=== PATIENT | male | born 1965 | race Caucasian/White ===

== ENCOUNTER → 2018-12-23 14:37 | Outpatient (CLI) | payer BC, SELFPAY | PROVIDERS: PCP Emergency Medicine; Visit Provider Emergency Medicine | DX: S81.802A Unspecified open wound, left lower leg, initial encounter (principal) | CPT/HCPCS: 87070; 87077; 87186; 87205 ==

== ENCOUNTER 2019-02-24 13:00 | Outpatient (RCR) | payer BC, SELFPAY ==
--- NOTE | 2018-12-23 14:47 | HMH.PTOPWND ---
Rehab Outpt Wound Evaluation Rehab OP Wound Evaluation Start: 12/23/18 13:22 Freq: Status: Active Protocol: Document 12/23/18 14:35 MERRY (Rec: 12/23/18 14:47 PHORNE [id number]) Electronically Signed By Nicholas Sneed, PT 12/23/18 14:35 Subjective/History History History Pt is 53 yowm who presents with c/o B LE swelling, pain, and open sores x ~ 2-3 yrs off and on, but worse x 1-2 mos. He reports he had a similar episode last year that took several mos to heal with treatment. He reports constant pain in B lower legs at 10/10 . He reports difficulty ambulating due to severe hip OA on the right side. He also has hx of HTN, epilepsy, and chronic LBP. His right lower leg presents with gauze wrap in place saturated with bright green drainage which shows a likely hernandez of pseudomonas infection. Subjective Subjective He continues to report 10/10 pain throughout B lower legs. Multiple open sores throughout the right lower leg. Wound Eval Wound Right Leg Wound Type Stasis Ulcer Is This a Chronic Wound Yes Wound Bed Appearance Dusky Red,[place],Peeling Skin, Edematous Wound Margins Description Indistinct Surrounding Tissue Appearance [place],Macerated Edema Appearance Weeping,Open Sores Drainage Description Green Drainage Amount Large Wound Topical Solution/Irrigant Saline Irrigant Primary Dressing Unna Boot Wound Secondary Dressing Type Gauze Roll/Wrap,Adhering Gauze Roll Wound Debridement Method Gauze Wound Debridement Amount of Tissue Moderate Removed Dressing Change Patient Tolerance Tolerated Well Wound Problems/Impairments Impairments Problems/Impairmments Palpation Tenderness,Impaired Strength,Impaired Endurance, Impaired Gait Pattern,Impaired Walking,Impaired Standing, Increased Edema,Lymphedema Present,Wound Care Needs, Subjective C/O Pain,Impaired
--- NOTE | 2019-01-23 14:42 | HMH.RHREAS ---
Rehab Reassessment Rehab OP Re-assessment Start: 01/23/19 14:37 Freq: Status: Active Protocol: Document 01/23/19 14:37 MERRY (Rec: 01/23/19 14:42 MERRY [id number]) Electronically Signed By Nicholas Sneed, PT 01/23/19 14:37 Rehab Re-assessment Subjective Subjective Pt reports itching continues on B LE, right > left, but otherwise feeling better. Objective Objective Notes Left LE wounds completely healed. Right LE 2 small wounds remain approximate length and width 1.5 cm ea. B LE edema decreased, but 1+ pitting edema remains. Assessment Progress Assessment Progressing as Expected Assessment Notes Right LE continues to have open sore, pitting edema and continued palpation tenderness . Patient goals met ST,2,3,4,5 Goals Not Met LT,2,3,4,5,6,7 Revised Goals none Plan Plan Continue per initial POC. Frequency of Therapy 2 x/wk Duration of therapy 8 wks Time and Billing Re-Eval Time 15 Re-Eval Billing Units 1 PHYSICIAN CERTIFICATION: I certify the specified therapy services for Ovidio Tracey are required, authorized, and reviewed every 30 days.
== END 2019-02-24 13:05 | disposition home or self-care (01) ==
LOC: PT 13:00
PROVIDERS: Visit Provider Emergency Medicine
DX: I89.0 Lymphedema, not elsewhere classified (principal)
CPT/HCPCS: 29580; 97140; 97163; 97164; 97597; 97760

== ENCOUNTER → 2019-06-05 09:04 | Outpatient (CLI) | payer BC, MEDICAID, SELFPAY ==
--- NOTE | 2019-06-05 09:52 | XR_ITS ---
PROCEDURE: XR HIP RT 2-3V W/PELVIS CLINICAL INDICATION: Hip pain COMPARISON: No exams were available for comparison FINDINGS: Study is limited technically due to patient's body habitus. There are severe osteoarthritic changes of the right hip with osteosclerosis loss of joint space and osteophyte formation. There are dysplastic changes the femoral head with mild lateral subluxation of the femoral head but no nehemias dislocation. IMPRESSION: Severe osteoarthritis of the right hip with dysplastic changes of the femoral head Dictated by: Kamlesh Riggs MD 06/05/2019 11:44 Electronically signed by Kamlesh Riggs MD in [place] 06/05/2019 11:44
== END ==
PROVIDERS: PCP Emergency Medicine; Visit Provider Orthopaedic Surgery
DX: M25.551 Pain in right hip (principal)
CPT/HCPCS: 73502

== ENCOUNTER → 2020-02-23 15:22 | Outpatient (CLI) | payer MEDICARE, BC, SELFPAY | PROVIDERS: Visit Provider Emergency Medicine | DX: L03.115 Cellulitis of right lower limb (principal); I89.0 Lymphedema, not elsewhere classified | CPT/HCPCS: 87070; 87077; 87186; 87205 ==

== ENCOUNTER 2020-04-07 15:00 | Outpatient (RCR) | payer MEDICARE, BC, SELFPAY ==
--- NOTE | 2020-02-23 16:15 | HMH.PTOPWND ---
Rehab Outpt Wound Evaluation Rehab OP Wound Evaluation Start: 02/23/20 16:07 Freq: Status: Active Protocol: Document 02/23/20 16:07 MERRY (Rec: 02/23/20 16:12 PHOJOHN [id number]) Electronically Signed By Nicholas Sneed, PT 02/23/20 16:07 Subjective/History History History Pt is 54 yowm who presents with B LE increased edema x 1- 2 mos, R > L. He also presents with obvious R LE cellulitis with multiple open wounds noted on the lateral and posterior R calf. Large purulent, bright green drainage noted. Pt has difficulty ambulating due to hip OA and hx of morbid obesity. Subjective Subjective Bright green drainage is indicitive of likely pseudomonas infection. Pt c/o pain in the R LE 8/10 at this time. Lymphedema Eval Classification of Lymphedema Secondary Lymphedema Yes Stemmer's sign Stemmer's Sign no Stage of Lymphedema Lymphedema stages Stage II (Pitting edema, increased fibrosis w/ decreased pitting) Skin Changes Dry Skin Yes [place]aut, Shiny Skin Yes Redness Yes Blisters Yes Wounds Yes Discoloration of Skin Yes Other Changes Yes Pain Scale Pain Scale (0-10) 8 Affected Extremities Areas Affected by Lymphedema/Edema Right Lower Extremity,Left Lower Extremity Manual Lymphatic Drainage Treatment Area MLD Treatment Area Right Lower Extremity,Left Lower Extremity Wound Problems/Impairments Impairments Problems/Impairmments Palpation Tenderness,Impaired Endurance,Impaired Gait Pattern,Impaired Walking, Increased Edema,Lymphedema Present,Wound Care Needs, Subjective C/O Pain,Impaired Self Care/Self Management Prognosis Rehab Potential Good Clinical Impression Consistent with Diagnosis Yes Short Term Goals Number of Weeks 4 Decreased Palpation Tenderness Yes: to min Decrease Edema Yes Decrease Wound Area Yes: by 25% Patient to Under
--- NOTE | 2020-03-24 14:14 | HMH.RHREAS ---
Rehab Reassessment Rehab OP Re-assessment Start: 03/24/20 14:06 Freq: Status: Active Protocol: Document 03/24/20 14:10 MERRY (Rec: 03/24/20 14:13 MERRY [id number]) Electronically Signed By Nicholas Sneed, PT 03/24/20 14:10 Rehab Re-assessment Subjective Subjective Pt reports less pain overall, continued itchy dry skin. Objective Objective Notes R Lower leg with 1+ pitting edema and mild fibrotic tissue quality. Wounds on R LE now fully epithelialized. Assessment Progress Assessment Progressing as Expected Assessment Notes No further wounds noted, improving edema and pain, mild excoriation of R lower leg. Patient goals met ST,2,3,4,5 Goals Not Met LT,2,3,4,5,6,7,8 Revised Goals none Plan Plan Continue per initial POC. Frequency of Therapy 2 x/wk Duration of therapy 8 wks Time and Billing Re-Eval Time 15 Re-Eval Billing Units 1 PHYSICIAN CERTIFICATION: I certify the specified therapy services for Ovidio Tracey are required, authorized, and reviewed every 30 days.
== END 2020-04-07 15:05 | disposition home or self-care (01) ==
LOC: PT 15:00
PROVIDERS: PCP Emergency Medicine; Visit Provider Emergency Medicine
DX: R60.0 Localized edema (principal); I89.0 Lymphedema, not elsewhere classified
CPT/HCPCS: 29580; 97140; 97162; 97164; 97597; 97760

== ENCOUNTER → 2021-08-30 08:34 | Outpatient (CLI) | payer MEDICARE, BC, SELFPAY ==
--- NOTE | 2021-08-30 08:38 | XR_ITS ---
FINAL REPORT CLINICAL HISTORY: right hip pain FINDINGS: 2 views of the right hip and an AP pelvis were obtained. 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 A 25 mm calcification superior to the right femoral neck favors a loose body. There is no acute bony abnormality. There is degenerative change in the lower lumbar spine. 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 If indicated, CT could further evaluate. Questionable 25 mm loose body superior to the right femoral neck. Reviewed, Interpreted and Dictated by Dale Bravo III, MD Transcribed by Arnold Melendrez Authenticated by Dale Bravo III, MD on 08/30/2021 10:15:06 AM [facility]
== END ==
PROVIDERS: PCP Emergency Medicine; Visit Provider Orthopaedic Surgery
DX: M25.551 Pain in right hip (principal)
CPT/HCPCS: 73502

== ENCOUNTER → 2021-09-18 09:40 | Outpatient (POV) | payer MEDICARE, BC, SELFPAY ==
[2021-09-18 10:07] VITALS: BP 123/82; PULSE 99; RESP 18; TEMP 36.1; O2SAT 94; BMI 55.9
--- NOTE | 2021-09-18 12:44 | HMH.PMCON ---
Assessment and Plan (1) Osteoarthritis of right hip Status: Chronic Category: Medical Code(s): M16.11 - Unilateral primary osteoarthritis, right hip - Assessment and plan all Dx Assessment and Plan for all problems:: This patient is a pleasant 56-year-old white that comes our clinic today for initial evaluation regarding right hip pain. Patient states the pain is constant, dull, aching. Patient states abduction or abduction movement increases the pain. Walking for any length of time increases the pain. Patient is 5 foot 10 and 400 pounds. Patient is under the care of of orthopedic surgery. However, due to body habitus it has not been recommended for hip replacement. Patient had 1 cortisone injection into the right hip. This gave him 1 to 2 weeks of relief. Patient has a follow-up visit and a second injection planned in November with orthopedic surgery. I discussed in detail with the patient regarding treatment options from our standpoint. Not much we can do that would supersede what is happening with orthopedic surgery as planned. No recommendation by our clinic at this time. HPI - Data of Consult Patient: new to practice Consult date: 09/18/21 Requesting Physician: Ever Antonio CRNA - Consult Narrative Reason for consult: Right hip pain History of present illness: Mr. Tracey is a 56 year old male CC: Ever Antonio CRNA [place] History I have reviewed the patient's past medical history: Yes Medical History: Reports:: Anxiety, Depression, Gastroesophageal Reflux Disease(GERD), Hypertension, Seizures Denies:: Cancer, Diabetes Mellitus Type 1, Diabetes Mellitus Type 2, MRSA *Have you ever received a pneumonia vaccine?: No *Have you received a flu vaccine this season?: Yes Other Medical History: Reports: Arthritis, Sinus Problems Other Surgeries: Yes: No Previous Surgery Amputation: No Fractures: No - *Social History Smoking Status: Never smoker Alcohol Intake: never Alcohol Intake Frequency:: a few times a month Substance Use Type: former substance user, marijuana *Occupational Status:: unemployed Housing: other Household Members: other *Travel in the last 8 weeks: None - Psychiatric History Pschychiatric History:: Reports:: Anxiety, Depression Family Hx:: Diabetes, Hyperlipidemia, Hypertension Meds Home Medications Medication Instructions Recorded Confirmed Type duloxetine 60 mg capsule,delayed 60 mg PO BID #56 cap 02/23/19 09/18/21 History release etodolac 500 mg tablet 500 mg PO BID #56 tab 02/23/19 09/18/21 History levetiracetam 500 mg tablet 500 mg PO BID #56 tab 02/23/19 09/18/21 History lisinopril 20 1 tab PO DAILY #28 tab 02/23/19 09/18/21 History mg-hydrochlorothiazide 25 mg tablet doxycycline monohydrate 100 mg 100 mg PO DAILY cap 08/30/21 09/18/21 History capsule risperidone 1 mg tablet 1 mg PO DAILY tab 08/30/21 09/18/21 History Allergies Allergy/AdvReac Type Severity Reaction Status Date / Time No Known Allergies Allergy Verified 08/30/21 11:45 Objective Vital signs: Temp Pulse Resp BP Pulse Ox 97.0 F L 99 H 18 123/82 94 L 09/18/21 10:07 09/18/21 10:07 09/18/21 10:07 09/18/21 10:07 09/18/21 10:07 Opioid Risk Tool - Opioid Risk Tool-Male Family hx alcohol abuse: N Family hx illegal drugs: N Family hx rx drug abuse: N Personal hx alcohol abuse: N Personal hx illegal drugs: N Personal hx rx drug abuse: N Age: 45+ Hx of sexual abuse: N Mental health issues-ADD,OCD,Bipolar, etc: N Hx of depression: N Male Risk Score: 0
== END ==
PROVIDERS: Visit Provider Nurse Anesthetist, Certified Registered
DX: M16.11 Unilateral primary osteoarthritis, right hip (principal)
CPT/HCPCS: 99202; G0463

== ENCOUNTER → 2022-03-05 10:46 | Outpatient (POV) | payer MEDICARE, MEDICAID, SELFPAY ==
[2022-03-05 10:56] VITALS: BP 132/66; PULSE 83; RESP 18; TEMP 36.6; O2SAT 93; BMI 51.9
--- NOTE | 2022-03-05 12:23 | EXP.PAIN.SOA ---
[facility] Pain Management SOAP Note Subjective:: Patient is a pleasant 56-year-old male who presents today for follow-up. Patient is coming treated for right hip pain, osteoarthritis of the right hip. We have not seen the patient since August 2021. He was being seen by orthopedics for his right hip pain. He was getting intra-articular hip injections that were providing significant relief. He was referred to us to see if he can continue these injections. Due to his body habitus, he has not been recommended for hip replacement. He currently resides at an assisted living facility. He presents today in a wheelchair. Rates his pain as 10 out of 10 today. He cannot tolerate any prolonged standing and walking. Rc [id number] with an active morphine equivalent of 0. He takes OTC medications for pain. Review of Systems: General: No recent weight changes, no fever, no sleep disturbances Respiratory: No cough, no shortness of air, no recurring pulmonary infections Cardiovascular/peripheral vascular: No chest pain, no palpitations, no edema, no shortness of breath Gastrointestinal: No new onset incontinence, normal bowel movements reported Genitourinary: No new onset incontinence Musculoskeletal: Right hip pain Psychiatric: [Normal mood/affect] Neurological: [Denies weakness in extremities], [denies balance issues] Objective:: Physical Exam: General: Alert and oriented x3, no acute distress, pleasant and cooperative Lungs: Respirations even and unlabored, symmetrical chest expansion Eyes: PERRL Musculoskeletal: Limited range of motion of the right hip secondary to pain Neurological: Speech clear, no gross sensory deficit Assessment:: Right hip pain, osteoarthritis of the right hip Plan:: We will schedule the patient for a right intra-articular hip injection. We will start the patient on meloxicam 7.5 mg daily. We will provide the patient with 1 month worth of refill. Patient has been instructed to contact the clinic with any concerns before the next appointment. Dr. Nelson has reviewed this note and agrees with this plan of care. This note was dictated using voice recognition software and make contain errors or omissions. PFSH PFS Social History Smoking Status: Never smoker second hand exposure: No alcohol intake: never substance use type: former substance user and marijuana current occupational status: disabled Travel in the last 8 weeks: None household members: other housing: other caffeine: Yes
== END | disposition home or self-care (01) ==
LOC: SC.PAIN 12:30 → SC.PAINP 03-15 12:08
PROVIDERS: Visit Provider Student in an Organized Health Care Education/Training Program
DX: M16.11 Unilateral primary osteoarthritis, right hip (principal); Z79.899 Other long term (current) drug therapy
CPT/HCPCS: 99212; G0463

== ENCOUNTER 2022-03-13 10:30 | Day surgery (SDC) | payer MEDICARE, BC, MEDICAID, SELFPAY ==
[2022-03-13 10:42] VITALS: BP 121/88; PULSE 86; RESP 18; TEMP 36.4; O2SAT 91; BMI 51.9
[2022-03-13 11:01] VITALS: BP 160/64; PULSE 80; RESP 18; O2SAT 94
--- NOTE | 2022-03-13 11:34 | EXP.PAIN.PRO ---
Procedure Date: 03/13/22 Time: 11:15 Anesthesiologist:: Ever Antonio CRNA Complications:: None Pre-procedure Diagnosis:: Osteoarthritis right hip Post-procedure Diagnosis:: Same. Indications for Procedure:: Patient is a pleasant 56-year-old morbidly obese male that comes to our clinic today for right intra-articular hip injection. Patient has chronic hip pain due to degenerative osteoarthritis right hip. Patient has been evaluated by orthopedics. Patient states orthopedics are not replacing his hip due to the fact that he is morbidly obese. In poor health. He rates his right hip pain 10/10. Patient has had right intra-articular hip injections in the past with significant improvement. I would also note the patient is requesting 15 mg Percocet twice daily. I informed the patient we would not be writing him narcotics. Explained to him the increased risk of sleep apnea. Also, informed the patient we do not routinely write narcotic medication for patients. Procedure Details:: Details of the procedure were explained to the patient. The patient taken procedure room placed in the supine position on the fluoroscopy table. The anterior right hip area was cleaned using chlorhexidine as a cleansing solution. Using fluoroscopy guidance a 22-gauge 5 inch needle was used to access the right hip joint. After negative aspiration 3 cc of 1% lidocaine +3 cc of 0.25% Marcaine and 40 mg of Depo-Medrol was injected. Patient tolerated the procedure without difficulty. There were no complications. Plan and Disposition:: Patient was discharged without incident.
== END 2022-03-13 11:01 | disposition home or self-care (01) ==
LOC: SC.PAINP 10:32 → SDC 03-15 12:08
PROVIDERS: PCP Emergency Medicine; Visit Provider Nurse Anesthetist, Certified Registered
DX: M16.11 Unilateral primary osteoarthritis, right hip (principal); E66.01 Morbid (severe) obesity due to excess calories
CPT/HCPCS: 20610; J1030

== ENCOUNTER 2023-03-01 19:29 | Inpatient (IN) | payer MEDICARE, MEDICAID, SELFPAY ==
[2023-03-01] VITALS (8 sets, daily range): BP systolic 56–192; BP diastolic 30–124; PULSE 82–112; RESP 17–20; TEMP 36.6–36.8; O2SAT 86–98; BMI 51.3; BMI 44.2
[2023-03-01 20:42] LABS: Basophils % 0.3 % (0.1-2.0); Eosinophils # 0.3 K/mm3 (0.0-0.4); Eosinophils % 2.6 % (0.1-12.0); Hematocrit 39.6 % (42.0-52.0); Hemoglobin 12.5 g/dL (14.1-18.0); Lymphocytes # 1.6 K/mm3 (0.7-4.5); Lymphocytes % 16.1 % (10-50); Mean Corpuscular HGB Conc 31.6 g/dL (31.8-35.4); Mean Corpuscular Hemoglobin 30.9 pg (27.0-31.2); Mean Corpuscular Volume 97.9 fl (80-94); Monocytes # 0.6 K/mm3 (0.1-1.0); Monocytes % 6.3 % (1.7-9.3); Neutrophils # 7.2 K/mm3 (1.8-7.8); Neutrophils % 74.7 % (37.0-80.0); Platelet Count 387 K/mm3 (142-424); Red Blood Count 4.04 M/mm3 (4.60-6.20); Red Cell Distribution Width 13.7 % (11.5-17.5); White Blood Count 9.7 K/mm3 (4.8-10.8)
[2023-03-01 20:47] LABS: Alanine Aminotransferase 41 U/L (12-78); Albumin Level 3.9 g/dl (3.5-5.0); Albumin/Globulin Ratio 1.2 (1.1-1.8); Alkaline Phosphatase 80 U/L (38-126); Anion Gap 14.6 mEq/L (5-15); Aspartate Amino Transferase 66 U/L (17-59); Bilirubin,Total 0.5 mg/dl (0.2-1.3); Blood Urea Nitrogen 34 mg/dl (9-20); Calcium 8.7 mg/dl (8.4-10.2); Carbon Dioxide 27 mmol/L (22.0-30.0); Chloride 97 mmol/L (98-107); Creatinine Clearance Estimated 23 mL/min (50-200); Estimated Glomerular Filt Rate 15 ml/min (>60); GFR (African American) 18 ML/MIN (>60); Globulin 3.2 g/dL (1.3-3.2); Glucose 128 mg/dl (74-100); Potassium 5.6 mmoL/L (3.5-5.1); Sodium 133 mmol/L (136-145); Total Protein,Serum 7.1 g/dl (6.3-8.2)
--- NOTE | 2023-03-01 21:11 | PC.NURSE ---
Doctor notified of katerine of 4.10 no new orders at this time
--- NOTE | 2023-03-01 21:32 | ECG_ITS ---
APPROVED REPORT Exam: Resting ECG HR:100 bpm ECG Measurements Heart Rate 100 AXES NV 168 P 58 QRSd 101 QRS 60 QT 332 T 63 QTc 389 Conclusion SINUS TACHYCARDIA ABNORMAL RHYTHM ECG UNCONFIRMED REPORT Electronically signed by : Johan Reyes MD 03/02/2023 07:54:13
[2023-03-01 21:39] LABS: Magnesium 2.2 mg/dl (1.6-2.3); Phosphorous 7.8 mg/dl (2.5-4.5)
[2023-03-01 21:45] LABS: Creatine Kinase 2568 U/L (55-170)
[2023-03-01 21:51] LABS: VBG Base Excess -6.9 mmol/L (-2.4-2.3); VBG HCO3 21.8 mmol/L (23-30); VBG Oxygen Saturation 86.7 % (50-70); VBG PCO2 62.8 mmol/L (35-51); VBG PO2 60.9 mmol/L (28-40); VBG Total CO2 23.7 mmol/L (23-27)
[2023-03-01 21:54] LABS: VBG PH 7.16 mmol/L (7.31-7.41)
--- NOTE | 2023-03-01 22:01 | PC.NURSE ---
critical vbg received.
--- NOTE | 2023-03-01 22:27 | PC.NURSE ---
Was notified charge in ER need for bed for patient with the diagnosis of rhabo. Per charge on med surg, patient will go to 214.
--- NOTE | 2023-03-01 22:34 | PC.NURSE ---
Report given to YAMILETH Lugo
--- NOTE | 2023-03-01 22:36 | PC.NURSE ---
Patient admitted to hospitial, Parish took patient to room, patient understood need for admission and agreeable. Stable upon admission
--- NOTE | 2023-03-01 22:41 | PC.NURSE ---
Patient arrived to floor via stretcher at 22:35.
--- NOTE | 2023-03-01 22:53 | EXP.HP ---
History of Present Illness *Admission Date: 03/01/23 *Reason for visit:: rhabdomyolysis *History of present illness: This is a 57-year-old male resident of foster home [facility] is brought to ED apparently for altered mental status. Per ER documentation patient was presented abnormal behavior. There is also documentation about patient having seizures. Patient is a poor historian, data is limited. During this assessment patient stated that his lilly called for help the problem he was sleeping . Patient denied being taking any drugs or alcohol. Patient cannot recall how long he was down. Admitted for further work up and management. [facility] Disclaimer: The information contained in this section may have been updated after the patient was seen, as this information can be updated by other users. Medical History (Updated 03/02/23 @ 09:35 by Anthony Turcios MD) Anxiety Arthritis Depression GERD (gastroesophageal reflux disease) Hypertension Lipedema Obesity Seizure Sinus problem Surgical History No significant past surgical history Family History Other No significant family history Social History (Updated 03/01/23 @ 23:34 by Cole Cho RN) Smoking Status: Never smoker second hand exposure: No alcohol intake: never substance use type: former substance user and marijuana current occupational status: disabled Travel in the last 8 weeks: None household members: other housing: assisted living facility lives independently: Yes caffeine: Yes Review of Systems Review of Systems Review of systems:: pertinent systems reviewed and negative unless documented below Meds Home Medications and Allergies Home Medications Medication Instructions Recorded Confirmed Type duloxetine 60 mg capsule,delayed 60 mg PO POSTTR Mood 03/01/23 03/01/23 History release gabapentin 250 mg/5 mL oral 300 mg PO TID Neuropathy 03/01/23 03/01/23 History solution hydroxyzine HCl 50 mg tablet 50 mg PO TID Anxiety 03/01/23 03/01/23 History levetiracetam 500 mg tablet 500 mg PO BID Seizure 03/01/23 03/01/23 History lisinopril 20 1 tab PO DAILY High Blood Pressure 03/01/23 03/01/23 History mg-hydrochlorothiazide 25 mg tablet risperidone 1 mg tablet 1 mg PO BID Antipsychotic 03/01/23 03/01/23 History trazodone 100 mg tablet 100 mg PO HS Mood 03/01/23 03/01/23 History New Prescriptions to Start Prescriptions: Allergies Allergy/AdvReac Type Severity Reaction Status Date / Time No Known Allergies Allergy Verified 03/01/23 23:34 Exam Data for Last 24 hours Vital signs and Labs for Last 24 Hours: Temp Pulse Resp BP Pulse Ox O2 Del Method 98.2 F 82 20 180/88 H 98 Room Air 03/01/23 22:34 03/01/23 22:34 03/01/23 22:34 03/01/23 22:34 03/01/23 19:45 03/01/23 19:45 Laboratory Results - last 24 hr 03/01/23 20:30: WBC 9.7, RBC 4.04 L, Hgb 12.5 L, Hct 39.6 L, MCV 97.9 H, MCH 30.9, MCHC 31.6 L, RDW 13.7, Plt Count 387, MPV 8.0, Neut % (Auto) 74.7, Lymph % (Auto) 16.1, [place] % (Auto) 6.3, Eos % (Auto) 2.6, Baso % (Auto) 0.3, Neut # (Auto) 7.2, Lymph # (Auto) 1.6, [place] # (Auto) 0.6, Eos # (Auto) 0.3, Baso # (Auto) 0.0, Sodium 133 L, Potassium 5.6 H, Chloride 97 L, Carbon Dioxide 27, Anion Gap 14.6, BUN 34 H, Creatinine 4.10 H, Estimated Creat Clear 23, Estimated GFR 15 L*, Est GFR ( Amer) 18 L*, Glucose 128 H, Calcium 8.7, Phosphorus 7.8 H, Magnesium 2.2, Total Bilirubin 0.5, AST 66 H, ALT 41, Alkaline Phosphatase 80, Total Creatine Kinase 2568 H*, Total Protein 7.1, Albumin 3.9, Globulin 3.2, Albumin/Globulin Ratio 1.2 03/01/23 21:22: VBG pH 7.16 L, VBG pCO2 62.8 H, VBG pO2 60.9 H, VBG HCO3 21.8 L, VBG Total CO2 23.7, VBG O2 Saturation 86.7 H, VBG Base Excess -6.9 L I & O for Last 24 hours: Intake & Output 02/26/23 02/27/23 02/28/23 03/01/23 23:59 23:59 23:59 23:59 Weight
--- NOTE | 2023-03-01 23:47 | ECG_ITS ---
APPROVED REPORT Exam: Resting ECG HR:97 bpm ECG Measurements Heart Rate 97 AXES MS 179 P 60 QRSd 98 QRS 57 QT 350 T 66 QTc 404 Conclusion SINUS RHYTHM LOW QRS VOLTAGE IN PRECORDIAL LEADS [QRS DEFLECTION < 1.0 mV IN CHEST LEADS] INCOMPLETE RIGHT BUNDLE BRANCH BLOCK [90+ ms QRS DURATION, TERMINAL R IN V1/V2, 40+ ms S IN I/aVL/V4/V5/V6] BORDERLINE ECG UNCONFIRMED REPORT Electronically signed by : Johan Reyes MD 03/03/2023 07:35:37
[2023-03-02] VITALS (33 sets, daily range): BP systolic 56–148; BP diastolic 0–83; PULSE 85–104; RESP 12–20; TEMP 36.6–37.8; O2SAT 90–100; BMI 44.1
--- NOTE | 2023-03-02 00:30 | PC.NURSE ---
CRE swab sent to lab
[2023-03-02 01:00] LABS: Alanine Aminotransferase 38 U/L (12-78); Albumin Level 3.6 g/dl (3.5-5.0); Albumin/Globulin Ratio 1.3 (1.1-1.8); Alkaline Phosphatase 76 U/L (38-126); Anion Gap 14.2 mEq/L (5-15); Aspartate Amino Transferase 54 U/L (17-59); Bilirubin,Total 0.4 mg/dl (0.2-1.3); Blood Urea Nitrogen 35 mg/dl (9-20); Calcium 8.6 mg/dl (8.4-10.2); Carbon Dioxide 28 mmol/L (22.0-30.0); Chloride 98 mmol/L (98-107); Creatinine Clearance Estimated 23 mL/min (50-200); Estimated Glomerular Filt Rate 15 ml/min (>60); GFR (African American) 18 ML/MIN (>60); Globulin 2.7 g/dL (1.3-3.2); Glucose 120 mg/dl (74-100); Potassium 5.2 mmoL/L (3.5-5.1); Sodium 135 mmol/L (136-145); Total Protein,Serum 6.3 g/dl (6.3-8.2)
--- NOTE | 2023-03-02 01:05 | HMH.EDGENADL ---
Discharge Plan Disposition Patient Disposition: Admitted Clinical Impressions Clinical Impression: Altered mental state Discharge ED Provider: Weston [facility] Adult HPI General Chief complaint: Anxiety Stated complaint: questionable delta8 Time Seen by Provider: 03/01/23 21:20 Mode of Arrival: Family Vehicle Source of Information: Patient Limitations: No Limitations Description of Symptoms (Recalled from ER Triage Doc. by RN): 57 yo male presents with chief complaint of not acting right per staff at [facility]. Patient apparently wasn't responding to staff like he normally does. Patient presents to us with alert,oriented status; slightly anxious. History of Present Illness HPI narrative: The patient presents with a chief complaint of a recent seizure, which occurred in the evening. He has a history of grand mal seizures and is currently on two or three medications for seizure management. The patient denies any history of kidney issues and reports normal urination. He also states that he has been drinking fluids regularly. The patient is experiencing pain in his back, left hip, and right hip, but denies any radiation of pain down his leg. He reports no recent changes in medications or new medications. Additional history limited secondary to mental status changes Related Data Home Medications Medication Instructions Recorded Confirmed duloxetine 60 mg capsule,delayed 60 mg PO POSTTR Mood 03/01/23 03/01/23 release gabapentin 250 mg/5 mL oral 300 mg PO TID Neuropathy 03/01/23 03/01/23 solution hydroxyzine HCl 50 mg tablet 50 mg PO TID Anxiety 03/01/23 03/01/23 levetiracetam 500 mg tablet 500 mg PO BID Seizure 03/01/23 03/01/23 lisinopril 20 1 tab PO DAILY High Blood Pressure 03/01/23 03/01/23 mg-hydrochlorothiazide 25 mg tablet risperidone 1 mg tablet 1 mg PO BID Antipsychotic 03/01/23 03/01/23 trazodone 100 mg tablet 100 mg PO HS Mood 03/01/23 03/01/23 Allergies Allergy/AdvReac Type Severity Reaction Status Date / Time No Known Allergies Allergy Verified 03/01/23 23:34 [facility] Disclaimer: The information contained in this section may have been updated after the patient was seen, as this information can be updated by other users. Medical History Anxiety Arthritis Depression GERD (gastroesophageal reflux disease) Hypertension Lipedema Obesity Seizure Sinus problem Surgical History No significant past surgical history Family History Other No significant family history Social History (Updated 03/01/23 @ 23:34 by Cole Cho RN) Smoking Status: Never smoker second hand exposure: No alcohol intake: never substance use type: former substance user and marijuana current occupational status: disabled Travel in the last 8 weeks: None household members: other housing: assisted living facility lives independently: Yes caffeine: Yes ROS Obtained: Yes Systems reviewed as appropriate & no additional complaints except as documented As per HPI Physical Exam General General appearance: alert, in no apparent distress, appears intoxicated and other (Delayed response to questioning, unkempt appearance) Head Head exam: atraumatic and normocephalic Eye Eye exam: Present normal appearance Neck Neck exam: Present normal inspection Chest Chest inspection: Present normal inspection and symmetric chest wall rise Respiratory Respiratory exam: Present normal lung sounds bilaterally; Absent respiratory distress Cardiovascular Cardiovascular exam: Present regular rate and normal rhythm Abdominal Exam Abdominal exam: Present soft Neurological Exam Neurological exam: Present alert and oriented X3 Psychiatric Psychiatric exam: Present normal affect and normal mood Skin Skin exam: Present warm and dry [facility]
[2023-03-02 01:49] LABS: Microscopic, Urine URINE MICROSCOPIC (MICROSCOPIC)
[2023-03-02 01:54] LABS: Appearance,Urine SL CLOUDY (Clear); Bilirubin,Urine Negative (Negative); Blood, Urine 3+ (Negative); Color,Urine DARK YELLOW (Yellow); Glucose,Urine (UA) 2+ (Negative); Ketones,Urine Negative (Negative); Leukocyte Esterase,Urine Negative (Negative); Nitrate,Urine Negative (Negative); PH,Urine 5.5 (5.0-8.5); Protein,Urine 2+ (Negative); Specific Gravity, Urine >= 1.030 (1.005-1.030); Urobilinogen,Urine 0.2 EU/dl (0.2)
--- NOTE | 2023-03-02 01:57 | HMH.EDGENADL ---
Discharge Plan Disposition Patient Disposition: Admitted Clinical Impressions Clinical Impression: Altered mental state Discharge ED Provider: Weston [facility] Adult HPI General Chief complaint: Anxiety Stated complaint: questionable delta8 Time Seen by Provider: 03/01/23 21:20 Mode of Arrival: Family Vehicle Source of Information: Patient Limitations: No Limitations Description of Symptoms (Recalled from ER Triage Doc. by RN): 57 yo male presents with chief complaint of not acting right per staff at [facility]. Patient apparently wasn't responding to staff like he normally does. Patient presents to us with alert,oriented status; slightly anxious. History of Present Illness HPI narrative: The patient presents with a chief complaint of a recent seizure, which occurred in the evening. He has a history of grand mal seizures and is currently on two or three medications for seizure management. The patient denies any history of kidney issues and reports normal urination. He also states that he has been drinking fluids regularly. The patient is experiencing pain in his back, left hip, and right hip, but denies any radiation of pain down his leg. He reports no recent changes in medications or new medications. Additional history limited secondary to mental status changes Related Data Home Medications Medication Instructions Recorded Confirmed duloxetine 60 mg capsule,delayed 60 mg PO POSTTR Mood 03/01/23 03/01/23 release gabapentin 250 mg/5 mL oral 300 mg PO TID Neuropathy 03/01/23 03/01/23 solution hydroxyzine HCl 50 mg tablet 50 mg PO TID Anxiety 03/01/23 03/01/23 levetiracetam 500 mg tablet 500 mg PO BID Seizure 03/01/23 03/01/23 lisinopril 20 1 tab PO DAILY High Blood Pressure 03/01/23 03/01/23 mg-hydrochlorothiazide 25 mg tablet risperidone 1 mg tablet 1 mg PO BID Antipsychotic 03/01/23 03/01/23 trazodone 100 mg tablet 100 mg PO HS Mood 03/01/23 03/01/23 Allergies Allergy/AdvReac Type Severity Reaction Status Date / Time No Known Allergies Allergy Verified 03/01/23 23:34 [facility] Disclaimer: The information contained in this section may have been updated after the patient was seen, as this information can be updated by other users. Medical History Anxiety Arthritis Depression GERD (gastroesophageal reflux disease) Hypertension Lipedema Obesity Seizure Sinus problem Surgical History No significant past surgical history Family History Other No significant family history Social History (Updated 03/01/23 @ 23:34 by Cole Cho RN) Smoking Status: Never smoker second hand exposure: No alcohol intake: never substance use type: former substance user and marijuana current occupational status: disabled Travel in the last 8 weeks: None household members: other housing: assisted living facility lives independently: Yes caffeine: Yes ROS Obtained: Yes Systems reviewed as appropriate & no additional complaints except as documented As per HPI Physical Exam General General appearance: alert, appears intoxicated and other Comment: Unkempt appearance Head Head exam: atraumatic and normocephalic Eye Eye exam: Present normal appearance Neck Neck exam: Present normal inspection Chest Chest inspection: Present normal inspection and symmetric chest wall rise Respiratory Respiratory exam: Present normal lung sounds bilaterally; Absent respiratory distress Cardiovascular Cardiovascular exam: Present regular rate and normal rhythm Abdominal Exam Abdominal exam: Present soft Neurological Exam Neurological exam: Present alert and oriented X3 Psychiatric Psychiatric exam: Present normal affect and normal mood Skin Skin exam: Present warm and dry Medical Decision Making Medical Records Medical records re
[2023-03-02 02:07] LABS: Amphetamine/Metha Screen,Urine Negative ng/ml (<1000)
[2023-03-02 02:08] LABS: Barbiturates Screen,Urine Negative ng/ml (<200); Benzodiazepines Screen,Urine Negative ng/ml (<200)
[2023-03-02 02:09] LABS: Cannabinoid Screen,Urine Positive ng/ml (<50); Cocaine Screen,Urine Negative ng/ml (<300)
--- NOTE | 2023-03-02 02:09 | PC.NURSE ---
Hospitalist MEDICAL AUTHORIZATION SPECIALIST is aware of severe hypotension. Verbal orders are to continue pushing fluids at this time. No orders for pressors at this time. Patient had approximately 500mL in bladder when bladder scanned. He urinated 450mL out of dark joleen urine.
[2023-03-02 02:10] LABS: Methadone Screen,Urine Negative ng/ml (<300)
[2023-03-02 02:11] LABS: Opiate Screen,Urine Negative ng/ml (<300); Phencyclidine Screen,Urine Negative ng/ml (<25)
[2023-03-02 02:15] LABS: Bacteria,Urine 3+ /lpf
[2023-03-02 02:16] LABS: Amorphous Sediment,Urine Trace /lpf
[2023-03-02 06:39] LABS: ABG Base Excess -5.7 mmol/L (-2.4-2.3); ABG HCO3 21.7 mmhg (22.0-26.0); ABG Oxygen Saturation 96 % (90-100); ABG PH 7.24 mmol/L (7.35-7.45); ABG PO2 85.9 mmhg (80-100); ABG TCO2 23.4 mmhg (23-27)
[2023-03-02 06:41] LABS: ABG PCO2 52.5 mmhg (35.0-45.0)
[2023-03-02 07:43] LABS: Chloride 100 mmol/L (98-107); Potassium 4.4 mmoL/L (3.5-5.1); Sodium 131 mmol/L (136-145)
[2023-03-02 07:46] LABS: Alanine Aminotransferase 33 U/L (12-78); Albumin Level 3.1 g/dl (3.5-5.0); Albumin/Globulin Ratio 1.3 (1.1-1.8); Alkaline Phosphatase 69 U/L (38-126); Anion Gap 11.4 mEq/L (5-15); Aspartate Amino Transferase 57 U/L (17-59); Bilirubin,Total 0.2 mg/dl (0.2-1.3); Blood Urea Nitrogen 34 mg/dl (9-20); Calcium 7.7 mg/dl (8.4-10.2); Carbon Dioxide 24 mmol/L (22.0-30.0); Creatinine Clearance Estimated 27 mL/min (50-200); Estimated Glomerular Filt Rate 19 ml/min (>60); GFR (African American) 23 ML/MIN (>60); Globulin 2.4 g/dL (1.3-3.2); Glucose 120 mg/dl (74-100); Total Protein,Serum 5.5 g/dl (6.3-8.2)
[2023-03-02 07:53] LABS: Creatine Kinase 2055 U/L (55-170)
--- NOTE | 2023-03-02 08:50 | PC.NURSE ---
Levophed started @ 8 mcg/min. Titrated per protocol. Currently infusing @ 12 mcg/min. Safety measures in place. Safety bed alarm and seizure precautions in place.
--- NOTE | 2023-03-02 09:40 | EXP.ACUTE.PN ---
Subjective *Date: 03/02/23 *Time: 11:32 Interval history: Patient did well overnight. Alert and oriented x3 on exam this morning. Stable on room air. Blood pressure remains soft. Making adequate urine. Denies any chest pain or shortness of breath. Denies any muscle pain. Seeing improvement in labs this morning. Medical Exam Vital signs and Labs for Last 24 Hours: Vital Signs Temp Pulse Pulse Resp BP BP Pulse Ox 03/02/23 08:00 90 03/02/23 08:00 03/02/23 07:34 99.1 F 03/02/23 06:15 03/02/23 06:00 97.9 F 98 H 17 96/48 L 99 03/02/23 05:00 90 14 87/47 L 100 03/02/23 04:58 03/02/23 04:45 90 03/02/23 04:00 90 15 80/35 L 100 03/02/23 03:00 93 H 14 106/42 L 100 03/02/23 02:40 03/02/23 02:00 98 H 16 56/37 L 98 03/02/23 01:20 96 H 19 70/0 L 99 03/02/23 01:18 97 H 17 71/35 L 99 03/02/23 01:16 96 H 17 71/25 L 100 03/02/23 01:00 98 H 19 80/24 L 98 03/02/23 00:34 98 H 17 103/44 L 98 03/02/23 01:09 99 03/02/23 01:00 03/01/23 23:19 112 H 18 103/44 L 96 03/01/23 23:17 104 H 19 75/40 L 91 L 03/01/23 23:09 102 H 19 56/42 L 92 L 03/01/23 23:00 104 H 19 75/30 L 91 L 03/01/23 22:57 97.9 F 105 H 18 74/30 L 86 L 03/02/23 00:00 97.9 F 100 H 12 97/58 L 95 03/01/23 22:51 100 H 03/01/23 23:00 03/01/23 22:34 98.2 F 82 20 180/88 H 03/01/23 19:45 98.2 F 85 17 192/124 H 98 O2 Del Method O2 Flow Rate 03/02/23 08:00 03/02/23 08:00 Room Air 03/02/23 07:34 03/02/23 06:15 Nasal Cannula 2 03/02/23 06:00 Nasal Cannula 2 03/02/23 05:00 Nasal Cannula 2 03/02/23 04:58 Nasal Cannula 2 03/02/23 04:45 03/02/23 04:00 Nasal Cannula 2 03/02/23 03:00 Nasal Cannula 2 03/02/23 02:40 Nasal Cannula 2 03/02/23 02:00 Nasal Cannula 2 03/02/23 01:20 Nasal Cannula 2 03/02/23 01:18 Nasal Cannula 2 03/02/23 01:16 Nasal Cannula 2 03/02/23 01:00 Nasal Cannula 2 03/02/23 00:34 Nasal Cannula 2 03/02/23 01:09 Nasal Cannula 2 03/02/23 01:00 Nasal Cannula 2 03/01/23 23:19 Nasal Cannula 2 03/01/23 23:17 Nasal Cannula 2 03/01/23 23:09 Nasal Cannula 2 03/01/23 23:00 Nasal Cannula 2 03/01/23 22:57 Room Air 03/02/23 00:00 Nasal Cannula 2 03/01/23 22:51 03/01/23 23:00 Nasal Cannula 3 03/01/23 22:34 03/01/23 19:45 Room Air Intake and Output 03/01/23 03/02/23 03/02/23 23:59 07:59 15:59 Intake Total 1659 / 1659 Output Total 1050 / 1400 350 / 1400 Balance 609 / 259 -350 / 259 Intake: Intake, Oral Amount 600 / 600 Intake, Total IV Amount 1059 / 1059 Calcium Gluconate 1,000 mg In 0 60 / 60 .9 % Sodium Chloride 50 ml @ 60 mls/hr IV ONCE ONE Rx#: [id number] Lactated Ringers 1000ML 1,000 999 / 999 ml @ 999 mls/hr IV .Q1H1M ONE Rx#:[id number] Output: Output, Urine Amount 1050 / 1400 350 / 1400 Other: Number of Unmeasured Voids 1 Weight 156.444 kg 156.291 kg Patient Weight 03/02/23 23:59 Weight 156.291 kg Laboratory Results - last 24 hr 03/01/23 20:30: WBC 9.7, RBC 4.04 L, Hgb 12.5 L, Hct 39.6 L, MCV 97.9 H, MCH 30.9, MCHC 31.6 L, RDW 13.7, Plt Count 387, MPV 8.0, Neut % (Auto) 74.7, Lymph % (Auto) 16.1, [place] % (Auto) 6.3, Eos % (Auto) 2.6, Baso % (Auto) 0.3, Neut # (Auto) 7.2, Lymph # (Auto) 1.6, [place]ingo # (Auto) 0.6, Eos # (Auto) 0.3, Baso # (Auto) 0.0, Sodium 133 L, Potassium 5.6 H, Chloride 97 L, Carbon Dioxide 27, Anion Gap 14.6, BUN 34 H, Creatinine 4.10 H, Estimated Creat Clear 23, Estimated GFR 15 L*, Est GFR ( Amer) 18 L*, Glucose 128 H, Calcium 8.7, Phosphorus 7.8 H, Magnesium 2.2, Total Bilirubin 0.5, AST 66 H, ALT 41, Alkaline Phosphatase 80, Total Creatine Kinase 2568 H*, Total Protein 7.1, Albumin 3.9, Globulin 3.2, Albumin/Globulin Ratio 1.2 03/01/23 21:22: VBG pH 7.16 L, VBG pCO2 62.8 H, VBG pO
--- NOTE | 2023-03-02 13:40 | PC.NURSE ---
Pt is resting in bed. Has not stated any complaints. Voiding per urinal. Levophed gtt titrated per protocol. 1030, Levophed @ 6 mcg/min. 1110, Levophed @ 2 mcg/min. Placed on stand by at 1200. Levophed restarted @ 1300 @ 2 mcg/min.
[2023-03-02 17:39] LABS: Chloride 100 mmol/L (98-107)
[2023-03-02 17:40] LABS: Potassium 5.2 mmoL/L (3.5-5.1); Sodium 132 mmol/L (136-145)
[2023-03-02 17:43] LABS: Anion Gap 14.2 mEq/L (5-15); Blood Urea Nitrogen 32 mg/dl (9-20); Calcium 8.2 mg/dl (8.4-10.2); Carbon Dioxide 23 mmol/L (22.0-30.0); Creatinine Clearance Estimated 39 mL/min (50-200); Estimated Glomerular Filt Rate 28 ml/min (>60); GFR (African American) 34 ML/MIN (>60); Glucose 112 mg/dl (74-100)
--- NOTE | 2023-03-02 18:24 | PC.NURSE ---
Pt remains up to chair. Has c/o discomfort to back this afternoon. Medicated per jul. Voids via urinal. Ambulates poorly with assistance. Remains on Levophed @ 1 mcg/min.
--- NOTE | 2023-03-02 19:03 | PC.NURSE ---
Levophed placed on stand by.
[2023-03-03] VITALS (11 sets, daily range): BP systolic 118–157; BP diastolic 56–96; PULSE 72–101; RESP 14–18; TEMP 36.6–37.3; O2SAT 95–100; BMI 44.1
--- NOTE | 2023-03-03 04:14 | PC.NURSE ---
VS stable and levophed drip off since shift change. Patient remained alert and oriented times 4 during shift. 2LNC applied while patient slept as oxygen dropped into 70's on room air. No other changes noted.
[2023-03-03 07:23] LABS: Basophils % 0.3 % (0.1-2.0); Eosinophils # 0.4 K/mm3 (0.0-0.4); Eosinophils % 5.9 % (0.1-12.0); Hematocrit 36.4 % (42.0-52.0); Hemoglobin 11.6 g/dL (14.1-18.0); Lymphocytes # 1.7 K/mm3 (0.7-4.5); Lymphocytes % 24.6 % (10-50); Mean Corpuscular HGB Conc 31.9 g/dL (31.8-35.4); Mean Corpuscular Hemoglobin 30.7 pg (27.0-31.2); Mean Corpuscular Volume 96.3 fl (80-94); Mean Platelet Volume 7.8 fl (7.4-10.4); Monocytes # 0.6 K/mm3 (0.1-1.0); Monocytes % 8.7 % (1.7-9.3); Neutrophils # 4.2 K/mm3 (1.8-7.8); Neutrophils % 60.5 % (37.0-80.0); Platelet Count 321 K/mm3 (142-424); Red Blood Count 3.78 M/mm3 (4.60-6.20); Red Cell Distribution Width 13.5 % (11.5-17.5)
[2023-03-03 07:27] LABS: Chloride 100 mmol/L (98-107); Potassium 4.6 mmoL/L (3.5-5.1); Sodium 132 mmol/L (136-145)
[2023-03-03 07:29] LABS: Alanine Aminotransferase 38 U/L (12-78); Aspartate Amino Transferase 74 U/L (17-59); Blood Urea Nitrogen 21 mg/dl (9-20); Creatinine Clearance Estimated 71 mL/min (50-200); Estimated Glomerular Filt Rate 57 ml/min (>60); GFR (African American) 68 ML/MIN (>60)
[2023-03-03 07:30] LABS: Albumin Level 3.3 g/dl (3.5-5.0); Albumin/Globulin Ratio 1.1 (1.1-1.8); Alkaline Phosphatase 82 U/L (38-126); Anion Gap 7.6 mEq/L (5-15); Bilirubin,Total 0.5 mg/dl (0.2-1.3); Carbon Dioxide 29 mmol/L (22.0-30.0); Globulin 2.9 g/dL (1.3-3.2); Glucose 106 mg/dl (74-100); Magnesium 1.8 mg/dl (1.6-2.3); Total Protein,Serum 6.2 g/dl (6.3-8.2)
[2023-03-03 07:41] LABS: Creatine Kinase 2779 U/L (55-170)
--- NOTE | 2023-03-03 10:04 | EXP.DC.SUM ---
General Admission date:: 03/01/23 Discharge date: 03/03/23 HPI HPI HPI: This is a 57-year-old male resident of foster home [facility] is brought to ED apparently for altered mental status. Per ER documentation patient was presented abnormal behavior. There is also documentation about patient having seizures. Patient is a poor historian, data is limited. During this assessment patient stated that his lilly called for help the problem he was sleeping . Patient denied being taking any drugs or alcohol. Patient cannot recall how long he was down. Admitted for further work up and management. Hospital Course Hospital Course Hospital Course: 57-year-old male with unknown medical history, brought to ER after apparently being found down for unknown period of time. After reviewing home medication, patient is on Keppra, trazodone, duloxetine and risperidone. Unclear history of having seizures prior to this. Upon arrival ER work-up found patient to have acute kidney injury with creatinine of 4.1, mild hyperkalemia. Hyponatremia and elevated CK. Some improvement with fluid resuscitation. No further seizures. Stable for discharge back to [facility]. Problems addressed as follows: -Rhabdomyolysis nontraumatic: -Seizure disorder -Hypotension Elevated CK on admission. Suspect secondary to his seizure. Increased his Keppra to 750 mg twice daily. We will continue this at discharge. Patient had no muscle ache or pain. No further seizure during admission. Initially had some hypotension that resolved after short course of norepinephrine for approximately 12 hours. Patient's blood pressure has been stable. Holding his blood pressure regimen from home at discharge. Back to baseline level of function stable for discharge back to [facility] -NOHEMI: Likely due to dehydration/prerenal and rhabdomyolysis. Significant fluid resuscitation during admission. Creatinine normalized from 4.1 on admission to 1.3 by day of discharge. Unclear patient's baseline however suspect it is near normal given his significant improvement. Having adequate urine output. Hyperkalemia resolved by day of discharge. Would benefit from repeat labs in 1 to 2 weeks to monitor kidney function and electrolytes Continue home gabapentin, resume normal dosing of 300 mg 3 times daily Continue home Risperdal 1 mg twice daily and trazodone 100 mg nightly Continue home Cymbalta 60 mg daily Stable to discharge back to [facility]. Difficulty in obtaining ride for patient. Appreciate the assistance of the elizabeth. Spent 35 minutes in discharge counseling, documentation, chart review, and direct care with patient. Exam Data for Last 24 hours Vital signs and Labs for Last 24 Hours: Temp Pulse Resp BP Pulse Ox O2 Del Method O2 Flow Rate 99.2 F 72 18 124/67 96 Room Air 2 03/03/23 07:56 03/03/23 09:00 03/03/23 09:00 03/03/23 09:00 03/03/23 09:00 03/03/23 09:00 03/03/23 06:41 Laboratory Results - last 24 hr 03/02/23 17:15: Sodium 132 L, Potassium 5.2 H, Chloride 100, Carbon Dioxide 23, Anion Gap 14.2, BUN 32 H, Creatinine 2.40 H D, Estimated Creat Clear 39, Estimated GFR 28 L, Est GFR ( Amer) 34 L D, Glucose 112 H, Calcium 8.2 L 03/03/23 06:35: WBC 7.0 D, RBC 3.78 L, Hgb 11.6 L, Hct 36.4 L, MCV 96.3 H, MCH 30.7, MCHC 31.9, RDW 13.5, Plt Count 321, MPV 7.8, Neut % (Auto) 60.5, Lymph % (Auto) 24.6, [place] % (Auto) 8.7, Eos % (Auto) 5.9, Baso % (Auto) 0.3, Neut # (Auto) 4.2, Lymph # (Auto) 1.7, [place] # (Auto) 0.6, Eos # (Auto) 0.4, Baso # (Auto) 0.0, Sodium 132 L, Potassium 4.6, Chloride 100, Carbon Dioxide 29, Anion Gap 7.6, BUN 21 H D, Creatinine 1.30 H D, Estimated Creat Clear 71, Estimated GFR 57 L, Est GFR ( Amer) 68 D, Glucose 106 H, Calcium 8.0 L, Magnesium 1.8 D, Total Bilirubin 0.5, AST 74 H D, ALT 38, Alkaline Phosphatase 82, Total Creatine Kinase 2779 H* D, Total Protein 6.2 L, Albumin 3.3 L, Globulin 2.9, Albumin/Globulin Ratio 1.1 I & O for
--- NOTE | 2023-03-03 10:24 | PC.NURSE ---
Spoke with Nadia at [facility]. Notified her that pt was being DC. Nadia stated that it was just her and one other staff member there and was unable to pick pt up. Asked Nadia if there was someone hadoop application developer. She stated [facility] in [place] . This nurse asked if there was a number for her? Nadia stated that there was but she was not going to give out her personal information. This nurse attempted to contact the Terell johnson of [facility]. No answer. Left message.
--- NOTE | 2023-03-03 11:21 | PC.NURSE ---
Report called to [facility]. POC, medications changed communicated with Nadia. Staff states they have not been able to speak with their management to establish transportation for the pt. Still have not heard back from [facility].
--- NOTE | 2023-03-03 13:04 | PC.NURSE ---
Called [facility] again. No answer. Still no transportation available for pt.
--- NOTE | 2023-03-03 13:59 | PC.NURSE ---
Katya picked pt up. Pt went down in WC outside of lobby and got into vehicle without any difficulty.
== END 2023-03-03 14:00 | disposition home or self-care (01) | DRG 558 ==
LOC: ER 19:57 → 2ND 22:30
PROVIDERS: Nurse Practitioner Family; Admitting Provider Internal Medicine Adolescent Medicine; Emergency Provider Emergency Medicine; PCP Emergency Medicine; Visit Provider Internal Medicine Adolescent Medicine
DX: M62.82 Rhabdomyolysis (principal); N17.9 Acute kidney failure, unspecified; E87.20 Acidosis, unspecified; Z68.42 Body mass index [BMI] 45.0-49.9, adult; E87.5 Hyperkalemia; I95.89 Other hypotension; E86.1 Hypovolemia; I89.0 Lymphedema, not elsewhere classified; E66.01 Morbid (severe) obesity due to excess calories; G40.909 Epilepsy, unspecified, not intractable, without status epilepticus
CPT/HCPCS: 36415; 80048; 80053; 80305; 81001; 82550; 82803; 83735; 84100; 85025; 87081; 87086; 93005; 99285

== ENCOUNTER → 2023-05-02 13:37 | Outpatient (CLI) | payer MEDICARE, MEDICAID, SELFPAY ==
--- NOTE | 2023-05-02 14:01 | XR_ITS ---
FINAL REPORT CLINICAL HISTORY: right hip pain, much worse than left. Chronic pain. No known injury per patient. 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 The joint space is severely degenerated. There is a loose body in the superior right hip measuring 18 mm in size, similar to the prior exam. There is degenerative change present in the lower lumbar spine. No soft tissue abnormality is seen. 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 A loose body in the superior right hip measuring 18 mm in size is stable. Reviewed, Interpreted and Dictated by Dale Bravo III, MD Transcribed by Jessi Garcia Authenticated and [facility]
--- NOTE | 2023-05-02 14:01 | XR_ITS ---
FINAL REPORT CLINICAL HISTORY: left hip pain, chronic, no known injury. COMPARISON: 08/30/2021 FINDINGS: LEFT HIP: Two views of the left hip demonstrate no acute fracture or dislocation. There is sclerosis present in the superior left femoral head. The joint spaces appear normal. The visualized bony structures are well aligned. No soft tissue abnormality is seen. IMPRESSION: Sclerosis present in the superior left femoral head, that may represent chronic osteonecrosis. No acute bony abnormality is identified. Reviewed, Interpreted and Dictated by Dale Bravo III, MD Transcribed by Jessi Garcia Authenticated and [facility]
== END ==
LOC: RAD 13:38
PROVIDERS: PCP Internal Medicine; Visit Provider Orthopaedic Surgery
DX: M25.551 Pain in right hip (principal); M25.552 Pain in left hip
CPT/HCPCS: 73502

== ENCOUNTER 2023-05-07 13:43 | Outpatient (RCR) | payer MEDICARE, MEDICAID, SELFPAY | END 2023-05-07 15:00 | disposition home or self-care (01) | LOC: PT 13:43 | PROVIDERS: PCP Internal Medicine; Visit Provider Internal Medicine | DX: I89.0 Lymphedema, not elsewhere classified (principal) ==

== ENCOUNTER 2024-01-23 10:07 | Emergency (ER) | payer MEDICARE, MEDICAID, SELFPAY ==
[2024-01-23] VITALS (14 sets, daily range): BP systolic 85–106; BP diastolic 49–74; PULSE 69–98; RESP 15–26; TEMP 36.3–37.4; O2SAT 85–100; BMI 41.8
--- NOTE | 2024-01-23 10:09 | ECG_ITS ---
APPROVED REPORT Exam: Resting ECG HR:96 bpm ECG Measurements Heart Rate 96 AXES OH 162 P 64 QRSd 122 QRS 63 QT 331 T 68 QTc 385 Conclusion SINUS RHYTHM RIGHT BUNDLE BRANCH BLOCK [120+ ms QRS DURATION, UPRIGHT V1, 40+ ms S IN I/aVL/V4/V5/V6] ABNORMAL ECG Electronically signed by : MARIELA MARTINS, 01/28/2024 18:26:37
--- NOTE | 2024-01-23 10:12 | XR_ITS ---
FINAL REPORT CLINICAL HISTORY: INTUBATION COMPARISON: None FINDINGS: ET tube is present with the tip 3.5 cm superior to the malcolm. The heart size is normal. The mediastinum is normal. Mild chronic changes are noted at the lung bases. There is no focal infiltrate or edema. There are no pleural effusions. There is no pneumothorax. There is no osseous abnormality. IMPRESSION: No acute cardiopulmonary process ET tube tip 3.5 cm superior to the malcolm. Reviewed, Interpreted and Dictated by Bacilio Squires MD Transcribed by Perla Duarte Authenticated and [facility]
[2024-01-23 10:29] LABS: MANUAL DIFFERENTIAL MANUAL DIFFERENTIAL (MANUAL DIFF)
[2024-01-23 10:35] LABS: Chloride 98 mmol/L (98-107)
[2024-01-23 10:35] LABS: VBG PH 7.29 mmol/L (7.31-7.41)
[2024-01-23 10:36] LABS: Albumin Level 4.2 g/dl (3.5-5.0); Basophils % 0.3 % (0.1-2.0); Eosinophils # 0.1 K/mm3 (0.0-0.4); Eosinophils % 0.7 % (0.1-12.0); Hematocrit 39.9 % (42.0-52.0); Hemoglobin 12.4 g/dL (14.1-18.0); Lymphocytes # 0.8 K/mm3 (0.7-4.5); Lymphocytes % 11.8 % (10-50); Mean Corpuscular HGB Conc 31.1 g/dL (31.8-35.4); Mean Corpuscular Hemoglobin 31.8 pg (27.0-31.2); Mean Corpuscular Volume 102.1 fl (80-94); Mean Platelet Volume 7.9 fl (7.4-10.4); Monocytes # 0.4 K/mm3 (0.1-1.0); Monocytes % 5.3 % (1.7-9.3); Neutrophils # 5.8 K/mm3 (1.8-7.8); Neutrophils % 81.9 % (37.0-80.0); Platelet Count 314 K/mm3 (142-424); Potassium 5.7 mmoL/L (3.5-5.1); Red Blood Count 3.91 M/mm3 (4.60-6.20); Red Cell Distribution Width 14.3 % (11.5-17.5); Sodium 132 mmol/L (136-145); White Blood Count 7.1 K/mm3 (4.8-10.8)
[2024-01-23 10:39] LABS: Alanine Aminotransferase 112 U/L (12-78); Albumin/Globulin Ratio 1.3 (1.1-1.8); Alkaline Phosphatase 84 U/L (38-126); Anion Gap 14.7 mEq/L (5-15); Aspartate Amino Transferase 95 U/L (17-59); Bilirubin,Total 0.8 mg/dl (0.2-1.3); Blood Urea Nitrogen 69 mg/dl (9-20); Calcium 7.5 mg/dl (8.4-10.2); Carbon Dioxide 25 mmol/L (22.0-30.0); Creatine Kinase 1517 U/L (55-170); Estimated Glomerular Filt Rate 9 ml/min (>60); GFR (African American) 11 ML/MIN (>60); Globulin 3.2 g/dL (1.3-3.2); Glucose 126 mg/dl (74-100); Total Protein,Serum 7.4 g/dl (6.3-8.2)
[2024-01-23 10:41] LABS: Ethyl Alcohol < 10 mg/dl (0-10)
--- NOTE | 2024-01-23 10:42 | CT_ITS ---
FINAL REPORT TECHNIQUE: Axial CT images were performed through the head. Coronal reformatted images were submitted. This study was performed with techniques to keep radiation doses as low as reasonably achievable (ALARA). Individualized dose reduction techniques using automated exposure control or adjustment of mA and/or kV according to the patient's size were employed. CLINICAL HISTORY: AMS FINDINGS: There is moderate atrophy. There is encephalomalacia in the right frontal lobe. There is an overlying right frontal craniotomy defect. The ventricles are normal in size. There is no evidence of hemorrhage. There is no mass or edema identified. There is no abnormal extra-axial fluid seen. The sinuses demonstrate extensive mucoperiosteal thickening in the right maxillary sinus. There is mucoperiosteal thickening in the left maxillary sinus and ethmoid air cells. IMPRESSION: No definite acute intracranial process. Encephalomalacia in the right frontal lobe. Moderate atrophy. Chronic sinusitis most evident in the right maxillary sinus. Reviewed, Interpreted and Dictated by Bacilio Squires MD Transcribed by Lois Vega Authenticated and . [facility]
--- NOTE | 2024-01-23 10:45 | PC.NURSE ---
Dr. Roth notified of cr. 6.30
--- NOTE | 2024-01-23 10:45 | HMH.EDGENADL ---
Discharge Plan Disposition Patient Disposition: Xfer Other Chief Complaint: Shortness of Breath/Dyspnea Prescriptions Prescriptions: No Action gabapentin 250 mg/5 mL solution 300 mg PO TID hydroxyzine HCl 50 mg tablet 50 mg PO TID trazodone 100 mg tablet 100 mg PO HS lisinopril-hydrochlorothiazide 20-25 mg tablet 1 tab PO DAILY risperidone 1 mg tablet 1 mg PO BID duloxetine 60 mg capsule,delayed release(DR/EC) 60 mg PO DAILY levetiracetam 500 mg tablet 750 mg PO BID 30 Days Qty: 90 0RF Referrals Follow up/Referrals: Provider,Referral, MD [Primary Care Provider] - See instructions Clinical Impressions Clinical Impression: Sepsis, Rhabdomyolysis, Pneumonia, NOHEMI (acute kidney injury), Acute hypoxic respiratory failure Stand Alone Forms Stand Alone Forms: Transfer Record - ED Print Language Print Language: Armenian Discharge ED Provider: Dick Roth General Adult HPI General Chief complaint: Shortness of Breath/Dyspnea Stated complaint: Sycopy Time Seen by Provider: 01/23/24 10:25 History of Present Illness HPI narrative: Ovidio Tracey Is a 58-year-old male with a past medical history of seizures, rhabdomyolysis, morbid obesity, lymphedema, presenting from [facility] due to concern for altered mental status. Patient arrives via EMS who provides details of the history. They note that she had a line in place send the patient was in his normal state of health last night but when they tried to arouse him this morning to give him his morning medications, he was unable to wake up for them. Fingerstick blood glucose 152 with EMS. They note that he was alert but would only respond to them with incomprehensible sounds prior to arrival. No medications given prior to arrival. They note that he was hypoxic with SpO2 of 85% and said that his lung sounds were junky . They noted that he was hypotensive as well with systolic blood pressures of 85. He received no fluids en route. Patient is currently a GCS of 9 Related Data Home Medications ?Medication ?Instructions ?Recorded ?Confirmed duloxetine 60 mg capsule,delayed 60 mg PO DAILY Mood 03/01/23 05/02/23 release gabapentin 250 mg/5 mL oral 300 mg PO TID Neuropathy 03/01/23 05/02/23 solution hydroxyzine HCl 50 mg tablet 50 mg PO TID Anxiety 03/01/23 05/02/23 lisinopril 20 1 tab PO DAILY Blood pressure 03/01/23 05/02/23 mg-hydrochlorothiazide 25 mg tablet risperidone 1 mg tablet 1 mg PO BID Antipsychotic 03/01/23 05/02/23 trazodone 100 mg tablet 100 mg PO HS Mood 03/01/23 05/02/23 Previous Rx's ?Medication ?Instructions ?Recorded levetiracetam 500 mg tablet 750 mg (1.5 x 500 mg) PO BID 03/03/23 Seizure 30 days #90 tabs Allergies Allergy/AdvReac Type Severity Reaction Status Date / Time No Known Allergies Allergy Verified 05/02/23 14:48 [facility] Disclaimer: The information contained in this section may have been updated after the patient was seen, as this information can be updated by other users. Medical History (Updated 01/23/24 @ 13:09 by Dick Roth MD) Lipedema Sinus problem Arthritis Hypertension Seizure Anxiety GERD (gastroesophageal reflux disease) Depression Obesity Surgical History (Updated 05/02/23 @ 14:49 by DEX Lucas) History of colonoscopy Family History Other No significant family history Social History Smoking Status: Unknown if ever smoked second hand exposure: No alcohol intake: never substance use type: former substance user and marijuana current occupational status: disabled Travel in the last 8 weeks: None household members: other housing: assisted living facility lives independently: Yes caffeine: Yes ROS Obtained: Yes unobtainable due to mental condition Physical Exam General General appe
--- NOTE | 2024-01-23 10:48 | PC.NURSE ---
10:40 chest xr at bs 1047 18 G r index finger [address]
[2024-01-23 11:01] LABS: Microscopic, Urine URINE MICROSCOPIC (MICROSCOPIC)
[2024-01-23 11:19] LABS: Appearance,Urine CLEAR (Clear); Blood, Urine 2+ (Negative); Color,Urine YELLOW (Yellow); Glucose,Urine (UA) Negative (Negative); Ketones,Urine Negative (Negative); Leukocyte Esterase,Urine Negative (Negative); Nitrate,Urine Negative (Negative); PH,Urine 5.5 (5.0-8.5); Protein,Urine TRACE (Negative); Specific Gravity, Urine >= 1.030 (1.005-1.030); Urobilinogen,Urine 0.2 EU/dl (0.2)
[2024-01-23 11:22] LABS: Bilirubin,Urine 1+ (Negative)
--- NOTE | 2024-01-23 11:40 | PC.NURSE ---
Called [facility] per Dr Roth to speak with them about getting this pt transferred up to them. Images have been powershared and a disc being made
--- NOTE | 2024-01-23 11:42 | PC.NURSE ---
[facility] called [facility] and is speaking with Dr Roth now.
[2024-01-23 11:50] LABS: Bacteria,Urine Trace /lpf; Squamous Epithelial Cell,Urine Occasional #/hpf (0-5); WBC,Urine Occasional #/hpf (0-3)
--- NOTE | 2024-01-23 11:51 | PC.NURSE ---
Dr Roth got off the phone with and advised that they would call us back when they get a bed.
[2024-01-23 12:03] LABS: Lymphocytes % 10 % (10-50); Monocytes % 16 % (2-9); Neutrophils % 74 % (42-76); Total Cells Counted 100
[2024-01-23 12:07] LABS: Polychromasia 1+
[2024-01-23 12:10] LABS: Platelet Estimate Normal
--- NOTE | 2024-01-23 12:11 | PC.NURSE ---
Called [facility] back and said that they were working on a bed for the pt at this time
--- NOTE | 2024-01-23 12:56 | PC.NURSE ---
report called to Linda at [facility] 12[address] floor room [address]. [phone]
--- NOTE | 2024-01-23 13:23 | PC.NURSE ---
[facility] accepted pt, 20 min eta
--- NOTE | 2024-01-25 08:36 | PC.NURSE ---
Addendum entered by Maria D Whipple RN 01/27/24 14:27: SPUTUM CULTURE FAXED TO NUMBER BELOW, WHERE PT WAS TRANSFERRED Original Note: prelim on blood cultures sent to [id number], where pt was transferred
== END 2024-01-23 14:03 | disposition other institution (70) ==
PROVIDERS: Emergency Provider Student in an Organized Health Care Education/Training Program
DX: A41.01 Sepsis due to Methicillin susceptible Staphylococcus aureus (principal); B95.7 Other staphylococcus as the cause of diseases classified elsewhere; R40.2422 Glasgow coma scale score 9-12, at arrival to emergency department; J96.01 Acute respiratory failure with hypoxia; M62.82 Rhabdomyolysis; A03.0 Shigellosis due to Shigella dysenteriae; E87.5 Hyperkalemia; E87.1 Hypo-osmolality and hyponatremia; N17.9 Acute kidney failure, unspecified
CPT/HCPCS: 31500; 51702; 70450; 71045; 80053; 80320; 81001; 82550; 82803; 85007; 85014; 85018; 85048; 85049; 87040; 87070; 87077; 87086; 87186; 87205; 93005; 94002; 96365; 96366; 96375; 99291; G0480; J0330; J0456; J0696; J2060; J2704; J7050; J7120; J7620